=== PATIENT | female | born 1955 | race African-American/Black ===

== ENCOUNTER 2020-10-13 16:25 | Emergency (ER) | payer OTHER ==
[2020-10-13 16:53] VITALS: TEMP 98.5; BMI 42.9
[2020-10-13] MEDS ORDERED: CYCLOBENZAPRINE HCL 5 MG TABLET PO ONE (18:18)
[2020-10-13] MEDS ORDERED: ACETAMINOPHEN 325 MG TABLET (FP) PO ONE (18:18)
[2020-10-13] MEDS ORDERED: ACETAMINOPHEN 325 MG TABLET (FP) ONE (18:28)
[2020-10-13] MEDS ORDERED: CYCLOBENZAPRINE HCL 10 MG TABLET (FP) ONE (18:28)
[2020-10-13 21:16] VITALS: BP 128/68; PULSE 72
== END 2020-10-13 21:18 | disposition home or self-care (01) ==
LOC: JER 16:25
DX: M79.10 Myalgia, unspecified site (principal)
CPT/HCPCS: 72170-TC-FY; 73030-TC-LT-FY; 73130-TC-LT-FY; 73130-TC-RT-FY; 73523-TC-FY; 73562-TC-LT-FY; 73562-TC-RT-FY; 73610-TC-LT-FY; 73630-TC-LT; 99284-25